=== PATIENT | male | born 1995 | race Caucasian/White ===

== ENCOUNTER 2017-08-03 16:05 | Emergency (ER) | payer OTHER ==
[2017-08-03] MEDS: ONDANSETRON 4MG/2ML VIAL (J2405) IV ×2 (19:30)
[2017-08-03] MEDS: NS 1,000 ML IV ×2 (19:30)
[2017-08-03] MEDS: MORPHINE 4 MG/ML 1ML SYRINGE IV ×2 (19:59)
[2017-08-03 20:05] LABS: BASO % 0.3 % (0.0-1.0); EOS % 0.1 % (0.0-3.0); HEMATOCRIT 44.8 % (42.0-52.0); IMMATURE GRANULOCYTE % 0.3 % (0-0); LYMPH % 17.1 % (24.0-44.0); MEAN CORPUSCULAR HEMOGLOBIN 30.5 pg (27.0-33.0); MEAN CORPUSCULAR HGB CONC 35.7 g/dl (32.0-36.5); MEAN CORPUSCULAR VOLUME 85.3 fl (80.0-96.0); MONO # 0.6 10^3/uL (0.0-0.8); MONO % 5.3 % (0.0-5.0); NEUTROPHILS # 8.8 10^3/uL (1.8-7.7); NEUTROPHILS % 76.9 % (36.0-66.0); PLATELET COUNT, AUTOMATED 323 10^3/uL (150-450); RED BLOOD COUNT 5.25 10^6/uL (4.30-6.10); RED CELL DISTRIBUTION WIDTH 11.4 % (11.5-14.5); WHITE BLOOD COUNT 11.5 10^3/uL (4.0-10.0)
[2017-08-03 20:10] LABS: KETONE, URINE AUTO RFX 1+ mg/dL (NEGATIVE); LEUKOCYTE ESTERASE UR AUTO RFX NEGATIVE (NEGATIVE); NITRITE, URINE AUTO RFX NEGATIVE (NEGATIVE); RBC, URINE AUTO RFX 1 /HPF (0-3); SPECIFIC GRAVITY UR AUTO RFX 1.013 (1.002-1.035); SQUAM EPITHELIAL CELL UR AURFX 0 /HPF (0-6); WBC, URINE AUTO RFX 3 /HPF (0-3)
[2017-08-03] MEDS ORDERED: ISOVUE-370 76% 100ML VIAL (Q9967) As Ordered ×2 (20:18)
[2017-08-03 20:19] LABS: ALBUMIN 4.9 GM/DL (3.2-5.2); ALBUMIN/GLOBULIN RATIO 1.48 (1.00-1.93); ALKALINE PHOSPHATASE 82 U/L (45-117); ALT/SGPT 21 U/L (12-78); ANION GAP 6 MEQ/L (8-16); AST/SGOT 10 U/L (7-37); BILIRUBIN,DIRECT 0.1 MG/DL (0.0-0.2); BILIRUBIN,TOTAL 0.4 MG/DL (0.2-1.0); BLOOD UREA NITROGEN 16 MG/DL (7-18); CALCIUM LEVEL 9.2 MG/DL (8.5-10.1); CARBON DIOXIDE LEVEL 27 MEQ/L (21-32); CHLORIDE LEVEL 106 MEQ/L (98-107); CREATININE FOR GFR 1.12 MG/DL (0.70-1.30); GLOMERULAR FILTRATION RATE > 60.0 (>60); GLUCOSE, FASTING 95 MG/DL (70-105); LIPASE 77 U/L (73-393); POTASSIUM SERUM 3.8 MEQ/L (3.5-5.1); SODIUM LEVEL 139 MEQ/L (136-145); TOTAL PROTEIN 8.2 GM/DL (6.4-8.2)
[2017-08-03] MEDS: METOCLOPRAMIDE INJ 10MG/2ML VIAL (J2765) IV ×2 (21:45)
== END 2017-08-03 22:37 | disposition home or self-care (01) ==
LOC: M ED 16:05
DX: A08.4 Viral intestinal infection, unspecified (principal); J45.909 Unspecified asthma, uncomplicated; F33.9 Major depressive disorder, recurrent, unspecified; Z79.899 Other long term (current) drug therapy; Z82.49 Family history of ischemic heart disease and other diseases of the circulatory system; Z83.79 Family history of other diseases of the digestive system; Z98.890 Other specified postprocedural states
CPT/HCPCS: J2405

== ENCOUNTER 2018-08-11 09:18 | Inpatient (IN) | payer OTHER ==
[~2018-08-11] VITALS: Ht 180.3 cm; Wt 73.8 kg
[~2018-08-11 09:18] MED LIST: BUPR15TA PO; SING10TA32 PO; TRAZ-160 PO; ZOFR4TAB14 PO
[2018-08-11] MEDS ORDERED: VYVA50CA4 PO (09:54)
[2018-08-11] MEDS ORDERED: TRIL1TAB PO (09:54)
[2018-08-11] MEDS ORDERED: HYDR-3363 PO (09:54)
[2018-08-11] MEDS ORDERED: FLUO40CA PO (09:54)
[2018-08-11] MEDS ORDERED: LITH300C PO (09:54)
[2018-08-11] MEDS ORDERED: MIRT15TA3 PO (09:54)
[2018-08-11 10:58] LABS: HEMATOCRIT 43.5 % (42.0-52.0); HEMOGLOBIN 15.1 g/dl (13.5-17.5); MEAN CORPUSCULAR HEMOGLOBIN 30.6 pg (27.0-33.0); MEAN CORPUSCULAR HGB CONC 34.7 g/dl (32.0-36.5); MEAN CORPUSCULAR VOLUME 88.1 fl (80.0-96.0); PLATELET COUNT, AUTOMATED 275 10^3/uL (150-450); RED BLOOD COUNT 4.94 10^6/uL (4.30-6.10); WHITE BLOOD COUNT 6.1 10^3/uL (4.0-10.0)
[2018-08-11] MEDS ORDERED: CBD OIL PO (11:16)
[2018-08-11] MEDS ORDERED: OXCA300T14 PO (11:16)
[2018-08-11 11:30] LABS: AMPHETAMINES LEVEL URINE POSITIVE (NEGATIVE); BARBITURATES URINE NEGATIVE (NEGATIVE); BENZODIAZEPINES URINE NEGATIVE (NEGATIVE); CANNABINOIDS URINE POSITIVE (NEGATIVE); COCAINE METABOLITE URINE NEGATIVE (NEGATIVE); METHADONE URINE NEGATIVE (NEGATIVE); OPIATES URINE NEGATIVE (NEGATIVE); PHENCYCLIDINE URINE NEGATIVE (NEGATIVE)
[2018-08-11 11:39] LABS: ALBUMIN 4.2 GM/DL (3.2-5.2); ALT/SGPT 17 U/L (12-78); BILIRUBIN,DIRECT 0.1 MG/DL (0.0-0.2); BILIRUBIN,TOTAL 0.5 MG/DL (0.2-1.0); BLOOD UREA NITROGEN 19 MG/DL (7-18); CALCIUM LEVEL 8.8 MG/DL (8.5-10.1); CARBON DIOXIDE LEVEL 25 MEQ/L (21-32); CHLORIDE LEVEL 105 MEQ/L (98-107); CREATININE FOR GFR 1.02 MG/DL (0.70-1.30); ETHYL ALCOHOL (ETHANOL) < 0.003 % (0.000-0.010); GLOMERULAR FILTRATION RATE > 60.0 (>60); GLUCOSE, FASTING 117 MG/DL (70-100); POTASSIUM SERUM 3.9 MEQ/L (3.5-5.1); SALICYLATE LEVEL < 1.7 MG/DL (5.0-30.0); SODIUM LEVEL 138 MEQ/L (136-145); THYROID STIMULATING HORMONE 0.896 uIU/ML (0.358-3.740); TOTAL PROTEIN 7.2 GM/DL (6.4-8.2)
[2018-08-11 11:40] LABS: ACETAMINOPHEN LEVEL < 2.0 UG/ML (10.0-30.0)
[2018-08-11] MEDS ORDERED: MAALOX 30 ML SUSP *UDC PO PRN (12:15)
[2018-08-11] MEDS ORDERED: traZODone 50 MG TAB PO PRN (12:15)
[2018-08-11] MEDS ORDERED: ACETAMINOPHEN TAB 650MG DOSE (2X325MG) PO PRN (12:15)
[2018-08-11] MEDS ORDERED: MOM 30ML SUSPENSION UDC PO PRN (12:15)
[2018-08-11 13:02] VITALS: BP 145/95
--- NOTE | 2018-08-11 15:20 | HPEPDOC ---
[facility] Medical History & Physical Date of Admission Aug 11, 2018 History and Physical PCP: [facility] ATTENDING: Dr. Leeroy Arredondo HPI: 23yoM admitted to [facility] for depressive disorder, being medically examined today. No acute medical complaints today. Pt states he takes Trileptal for mood. Denies any fevers, chills, weakness, fatigue, AGUILERA, CP, SOB, cough, palpitations, abdominal pain, N/V/D or changes in bowel or bladder habits. PMHx: Anxiety depression H/O SI Asthma PSHX: epidural injection x 2 related to back injury SOCHX: Resides in: [facility] Marital Status: single Kids: none Employment: [employer] Tobacco use: denies ETOH: denies Illicit Drugs: marijuana daily IV Drug Use: Denies Tattoos done unprofessionally: Denies FAMHX: Mother: Alive, fibromyalgia/OA Father: Alive,HTN, HLD, depression Siblings: Alive, well Children: none Unexpected deaths due to medical reasons: None. ROS: As noted in HPI, otherwise 11pt ROS of systems reviewed and unremarkable. PE: GEN: 23yoM, appears stated age. Well-nourished, well developed. No acute distress. Alert and oriented x 3. Pleasant, interactive. HEENT: Normocephalic, atraumatic. Pupils are equal, round, and reactive to light. Extraocular movements are intact. No nystagmus appreciated. Sclera are nonicteric. Conjunctiva without injection. Nose midline. Nasal turbinates without bogginess. EACs both patent BL. TMs both visualized and roberto with good cone of light, no bulging or erythema. No facial asymmetry. Moist mucous mem branes. Dentition fair. Pharynx pink and moist. Neck supple, trachea midline. No lymphadenopathy or thyromegaly appreciated. CHEST: Regular rate and rhythm, +S1, +S2 LUNGS: Clear to auscultation bilaterally. No wheezes, rales, or rhonchi. Breathing appears symmetric and easy. Patient is speaking in full sentences. No accessory muscle use. ABD: Round, soft, non-tender, non-distended. +Bowel sounds throughout. No rebound or guarding. No costovertebral angle tenderness. EXT: Pulses 2+ bilaterally dorsalis pedis and radial. No lower extremity edema appreciated. SKIN: [place], dry, warm. Capillary refill <2sec. No rashes. NEURO: Alert and oriented x 3. Cranial nerves III-XII are intact. No focal de ficits appreciated. EKG: pending A&P: 23yoM admitted to [facility] for depressive disorder 1. Psych. Plan per Psychiatry. Obtain baseline EKG to assure the safety of psychiatric medications as they can prolong the QT interval. 2. Asthma. Continue Singulair 10 mg po daily. Albuterol HFA 2 puffs Q4hr as needed. 3. Follow up with PCP on discharge. 4. Substance use. management per psychiatry. Vital Signs Vital Signs Date Time Temp Pulse Resp B/P (MAP) Pulse Ox O2 Delivery O2 Flow Rate FiO2 08/11/18 13:05 97.9 81 18 127/84 (98) 98 Room Air Laboratory Data Labs 24H Laboratory Tests 2 08/11/18 10:08: Nucleated Red Blood Cells % (auto) 0.0, Anion Gap 8, Glomerular Filtration Rate > 60.0, Calcium Level 8.8, Aspartate Amino Transf (AST/SGOT) 14, Alanine Aminotransferase (ALT/SGPT) 17, Alkaline Phosphatase 59, Total Bilirubin 0.5, Direct Bilirubin 0.1, Total Protein 7.2, Albumin 4.2, Albumin/Globulin Ratio 1.40, Thyroid Stimulating Hormone (TSH) 0.896, Salicylates Level < 1.7L, Urine Amphetamines Screen POSITIVEH, Urine Benzodiazepines Screen NEGATIVE, Urine Opiates Screen NEGATIVE, Urine Methadone Screen NEGATIVE, Acetaminophen Level < 2.0L, Urine Barbiturates Screen NEGATIVE, Urine Phencyclidine Screen NEGATIVE, Urine Cocaine Metabolite Screen NEGATIVE, Urine Cannabinoids Screen POSITIVEH, Ethyl Alcohol Level < 0.003 CBC/BMP Laboratory Tests 08/11/18 10:08 Red Blood Count 4.94, Mean Corpuscular Volume 88.1, Mean Corpuscular Hemoglobin 30.6, Mean Corpuscular Hemoglobin Concent 34.7, Red Cell Distribution Width 11.7 Home Medications Scheduled (Vyvanse) 50 Mg Cap, 50 MG PO QAM Cannabidiol (Cbd Oil) Btl, 1 CHEW PO DAILY Fluoxetine Hcl (Fluoxetine HCl) 40 Mg Cap, 40 MG PO DAILY [place] Carbonate ([place] Carbonate) 300 Mg Cap, 300 MG PO QHS Mirtazapine (Mirtazapine) 15 Mg Tab, 15 MG PO QHS Montelukast Sodium (Singulair) 10 Mg Tab, 10 MG PO DAILY Oxcarbazepine (Trileptal) 300 Mg Tab, 300 MG PO QAM Oxcarbazepine (Oxcarbazepine) 300 Mg Tab, 600 MG PO QHS Allergies Coded Allergies: SEASONAL ALLERGIES (Unverified Allergy, Unknown, 08/11/18) Kelley Hall Aug 11, 2018 15:20
[2018-08-11] MEDS ORDERED: ALBUTEROL 90 MCG/ACT 8GM HFA INHALER INH PRN (15:30)
[2018-08-11 18:00] VITALS: BP 136/87
[2018-08-11] MEDS ORDERED: LITHIUM CARBONATE 300 MG CAP PO SCH (21:00)
[2018-08-11] MEDS: MIRTAZAPINE 15 MG TAB PO SCH (21:28)
[2018-08-11] MEDS: OXcarbazepine 300 MG TAB PO SCH (21:28)
[2018-08-12 07:00] VITALS: BP 127/48
[2018-08-12] MEDS: MONTELUKAST 10 MG TAB PO SCH (08:08)
[2018-08-12] MEDS: FLUoxetine 20 MG CAP PO SCH (08:08)
[2018-08-12] MEDS: OXcarbazepine 300 MG TAB PO SCH ×2 (08:09→20:42)
[2018-08-12] MEDS: LITHIUM CARBONATE 150 MG CAP PO SCH ×2 (12:32→20:42)
[2018-08-12 18:14] VITALS: BP 120/70
[2018-08-12] MEDS: MIRTAZAPINE 15 MG TAB PO SCH (20:42)
[2018-08-13 06:10] VITALS: BP 121/57
[2018-08-13] MEDS: FLUoxetine 20 MG CAP PO SCH (08:24)
[2018-08-13] MEDS: LITHIUM CARBONATE 150 MG CAP PO SCH ×2 (08:24→20:34)
[2018-08-13] MEDS: MONTELUKAST 10 MG TAB PO SCH (08:24)
[2018-08-13] MEDS: OXcarbazepine 300 MG TAB PO SCH ×2 (08:25→20:35)
[2018-08-13 18:00] VITALS: BP 135/87
[2018-08-13] MEDS: MIRTAZAPINE 15 MG TAB PO SCH (20:34)
--- NOTE | 2018-08-13 21:22 | MHHPEPDOC ---
General Date Of Admission: Aug 12, 2018 Legal Status: 9.39 Chief Complaint Increasing depression had SI with a plan History of Present Illness HISTORY OF THE PRESENT ILLNESS: Patient is a 23 -year-old , male, who, as per ED report: "Reason for Referral Patient states that his therapist at [facility], Ruchi Suárez, referred him due to SI. Chief Complaint The patient reports that he went to a scheduled therapy appointment & told his therapist that yesterday he was very depressed. While at work he had thoughts of suicide & when he got home he took his mother's Vicodin & some alcohol upstairs with the intention of overdosing. He decided not to do it because he new he would be seeing his therapist today. He reports that his depression has been increasing since the fall, with loss of interests, apathy, anxiety, poor appetite. He is currently on Remeron, Vyvanse, Prozac, Trileptal, & [place] but feels that the meds and therapy are not enough. He thinks that he needs long-term tx." Psychiatric Review of Systems Depression (2 or more weeks): depressed mood, anhedonia, insomnia/hypersomnia (Since he started taking Mirtazapine, about 1.5 month ago, he is not having insomnia), feelings of excess/guilt, feelings of worthlesness (hopelessness and helplessness too. He had them until Wednesday but not now.), difficulty concentrating (He takes Vyvance for it, because he has trouble concentrating.), appetite changes (ithas been up and own for the last 6 months and that's why I've been takin Remeron"), psychomotor changes (psychomotor retardation, it's not physical, it's mental.), suicidal thoughts (Not right now) Psychosis: denies PTSD: denies Anxiety: situational anxiety, panic attacks (on and off. He thinks it happens because he had just got out of the hospital, he got nervous about being around a lot of people) Anxiety/ 6 months or more of: restlessness, keyed up, difficulty concentrating, muscle tension, sleep disturbance Past Psychiatric History Previous Psychiatric Diagnosis: Depression. Previous Psychiatric Admissions: Yes, in [facility] Suicide Attempts: Attempted for the first time this past Wednesday (08-10-18) Psychiatric Follow-up: Dr. Suárez and Dr. Martinez. She went the last time to Dr. Suárez . Psychiatric medications: [place], he was started on 300 and then it was lowered to 150 because he was developing tremors. He takes Vyvanse, Remeron, Prozac, Trileptal Past Medical History Medical Problems Takes Syngulair, Symbicort, CBD gummies Head Injury: Yes (he had a concussion in college, he was on crutches, he slid off.. He went through a CT scan and it was normal. After the concusion, he had constant headaches.) Seizures: No Hospitalizations: Yes (On [facility] for suicidal ideation) Surgeries: No Family Medical/Psychiatric HX Medical Problems Hypertension Psychiatric Disorders: Yes (Depression on both sides of the family. ) Addiction: Yes Suicide Attemps/Completions: No (No one kniows if his counsin's overdose was accidental or intentional) Addiction History alcohol (It was occasional, when he was in college. He doesn't do it because of the medications he takes), other (Marihuana, once in awhile, because he uses as a crutch when he feels very depressed and it calms him down. It numbs his feelings. Dr. Suárez has suggested him going to a dual diagnosis program) Social History Childhood: Good, he had a good childhood. His parents were together, good to him. He has one brother with whom he gets along. Abuse/Trauma: He was good in school and he thinks that's why he was bullied in Middle School. Current Living Situation: Lives with his parents. Education: College Education. Political Sciences and History Employment: Works at [employer] Social Support: His family Legal: He denies Marital: Single, no children Mental Status Examination General Appearance: well groomed, appears stated age, hospital scubs/clothing Build: average Demeanor: very figety Eye Contact: average Activity: anxious Behavior: cooperative Speech: clear, rapid, pressured, spontaneous Mood: anxious, hypomanic Affect: full, appropriate, congruent, anxious Thought Process: logical/linear Thought Content (Delusions): none reported Thought Content (Other): none reported Thought Content (Aggressive): none reported Perception (Hallucinations): none reported Perception (Other): none reported Cognition (Impairment of): attention/concentration Cognition(Intelligence Est.): average Insight: fair Judgment: Fair Diagnoses 1. Major depressive disorder, recurrent, severe Assessment Patient has a long-standing history of depression, he has a family history of depression. He is being treated by Dr. Suárez, his therapist and Dr. Martinez his psychiatrist. He is a productive and very smart young man who recognizes the symptoms of depression and who acknowledges that he has been depressed for a long period of time. He thinks and Dr. Suárez his therapist think that he would benefit from a dual diagnosis program since he smokes marijuana to numb the feelings of depression. Initial Treatment Plan 1. Patient was admitted on a [9.39] status. 2. Complete history was obtained. 3. With patients permission, family will be contacted and database will be expanded. 4. Patients medication regimen will be reviewed and changed accordingly. 5. Patient will be provided with protected environment. 6. Patient will be treated with individual, group, and milieu therapies. 7. Patient will receive supportive psych-education. 8. Discharge planning will commence immediately. 9. Outpatient follow-up treatment will be strongly recommended. 10. The initial treatment plan will focus initially on: * Depression. * Anxiety * Risk for suicide. * Substance abuse. ESTIMATED LENGTH OF STAY: 5-7 DAYS. TIME SPENT COUNSELING AND COORDINATING INITIAL CARE: 60 minutes. Vital Signs Vital Signs Date Time Temp Pulse Resp B/P (MAP) Pulse Ox O2 Delivery O2 Flow Rate FiO2 08/12/18 07:00 98.7 86 16 127/48 (74) 08/11/18 13:05 98 Room Air Medications Scheduled (Vyvanse) 50 Mg Cap, 50 MG PO QAM, (Reported) Cannabidiol (Cbd Oil) Btl, 1 CHEW PO DAILY, (Reported) Fluoxetine Hcl (Fluoxetine HCl) 40 Mg Cap, 40 MG PO DAILY, (Reported) [place] Carbonate ([place] Carbonate) 300 Mg Cap, 300 MG PO QHS, (Reported) Mirtazapine (Mirtazapine) 15 Mg Tab, 15 MG PO QHS, (Reported) Montelukast Sodium (Singulair) 10 Mg Tab, 10 MG PO DAILY, (Reported) Oxcarbazepine (Trileptal) 300 Mg Tab, 300 MG PO QAM, (Reported) Oxcarbazepine (Oxcarbazepine) 300 Mg Tab, 600 MG PO QHS, (Reported) Allergies Coded Allergies: SEASONAL ALLERGIES (Unverified Allergy, Unknown, 08/11/18) ERIC HOWARD MD Aug 12, 2018 12:16
--- NOTE | 2018-08-13 21:30 | MHIPNPDOC ---
[facility] Progress Note Progress Note DATE OF SERVICE: 08/13/18 HISTORY: "Reason for Referral Patient states that his therapist at [facility], Ruchi Suárez, referred him due to SI. Chief Complaint The patient reports that he went to a scheduled therapy appointment & told his therapist that yesterday he was very depressed. While at work he had thoughts of suicide & when he got home he took his mother's Vicodin & some alcohol upstairs with the intention of overdosing. He decided not to do it because he new he would be seeing his therapist today. He reports that his depression has been increasing since the fall, with loss of interests, apathy, anxiety, poor appetite. He is currently on Remeron, Vyvanse, Prozac, Trileptal, & [place] but feels that the meds and therapy are not enough. He thinks that he needs long-term tx." VITAL SIGNS: See below. NEW TEST RESULTS: See below. CURRENT MEDICATIONS: See below. MENTAL STATUS EXAMINATION: Patient is a 23-year old male, who is alert, cooperative, laying in bed, reading, wearing hospital clothes. Speech: Is spontaneous and fluent, normal in rhythm, rate, tone and volume. Language skills are good. Thought processes including: Linear, coherent. Thought content: Goal directed, enthusiastic about going for long-term treatment. Abstract reasoning, and computation: Good. Description of associations: Intact Description of abnormal or psychotic thoughts: Denies auditory and visual hallucinations and denies thought delusions. Has passive and fleeting suicidal thoughts, with no plan. Can contract for safety. Denies homicidal ideation Judgment: Fair. Insight: Fair. Orientation: 3. Recent and remote memory: Intact. Attention span and concentration: Good. Language: Well structured, good vocabulary. Fund of knowledge: Average. Mood: Anxious/depressed. Affect: Congruent with mood. DIAGNOSES: 1. Major depressive disorder, recurrent, severe.. ASSESSMENT: Patient is very cooperative, interested in his treatment, he says he spoke with his father today and his father has communicated with his psychiatrist and his therapist and they found information about [facility] and a long-term hospitalization treatment program that would suit his needs. Patient reports that he will like to go there if we could refer him but he also manifests worries about his dog being put to sleep and him wanting to be there with his dog. He tells me that he had told his parents that His Dog Could Be Put to Sleep on Wednesday night but I tell him that that the referral will take some time, probably he won't be discharged on Wednesday MANAGEMENT PLAN: We'll continue with the same treatment plan. [place] levels Wednesday morning TIME SPENT: 20 minutes. Vital Signs Vital Signs Date Time Temp Pulse Resp B/P (MAP) Pulse Ox O2 Delivery O2 Flow Rate FiO2 08/13/18 18:00 98.6 80 16 135/87 (103) 08/11/18 13:05 98 Room Air Current Medications Current Medications Acetaminophen (Tylenol Tab) 650 mg Q6HP PRN PO HEADACHE or DISCOMFORT; Start 08/11/18 at 12:15 Al Hydrox/Mg Hydrox/Simethicone (Mylanta) 30 ml Q4HP PRN PO HEARTBURN/INDIGESTION; Start 08/11/18 at 12:15 Albuterol Sulfate (Proventil, Ventolin Hfa) 2 puff Q4HP PRN INH SHORTNESS OF BREATH; Start 08/11/18 at 15:30 Fluoxetine HCl (PROzac) 40 mg DAILY PO Last administered on 08/13/18at 08:24; Start 08/12/18 at 09:00 Home Med (Med Rec Complete!) ASDIRECTED XX ; Start 08/11/18 at 11:30; Stop 08/11/18 at 11:30; Status DC [place] Carbonate ([place] Carbonate) 150 mg BID PO Last administered on 08/13/18at 20:34; Start 08/12/18 at 12:30 [place] Carbonate ([place] Carbonate) 300 mg QHS PO Last administered on 08/11/18at 21:28; Start 08/11/18 at 21:00; Stop 08/12/18 at 12:17; Status DC Magnesium Hydroxide (Milk Of Magnesia) 30 ml DAILYPRN PRN PO CONSTIPATION; Start 08/11/18 at 12:15 Mirtazapine (Remeron) 15 mg QHS PO Last administered on 08/13/18at 20:34; Start 08/11/18 at 21:00 Montelukast Sodium (Singulair) 10 mg DAILY PO Last administered on 08/13/18at 08:24; Start 08/12/18 at 09:00 Oxcarbazepine (Trileptal) 300 mg QAM PO Last administered on 08/13/18at 08:25; Start 08/12/18 at 09:00 Oxcarbazepine (Trileptal) 600 mg QHS PO Last administered on 08/13/18at 20:35; Start 08/11/18 at 21:00 Trazodone HCl (Desyrel) 50 mg QHSP PRN PO INSOMNIA; Start 08/11/18 at 12:15; Status Cancel Allergies Coded Allergies: SEASONAL ALLERGIES (Unverified Allergy, Unknown, 08/11/18) ERIC HOWARD MD Aug 13, 2018 21:30
[2018-08-14 06:28] VITALS: BP 134/74
[2018-08-14] MEDS: LITHIUM CARBONATE 150 MG CAP PO SCH ×2 (08:02→20:35)
[2018-08-14] MEDS: FLUoxetine 20 MG CAP PO SCH (08:03)
[2018-08-14] MEDS: OXcarbazepine 300 MG TAB PO SCH ×2 (08:03→20:35)
[2018-08-14] MEDS: MONTELUKAST 10 MG TAB PO SCH (08:03)
--- NOTE | 2018-08-14 16:24 | MHIPNPDOC ---
[facility] Progress Note Progress Note DATE OF SERVICE: 08/14/18 HISTORY: "Reason for Referral Patient states that his therapist at [facility], Ruchi Suárez, referred him due to SI. Chief Complaint The patient reports that he went to a scheduled therapy appointment & told his therapist that yesterday he was very depressed. While at work he had thoughts of suicide & when he got home he took his mother's Vicodin & some alcohol upstairs with the intention of overdosing. He decided not to do it because he new he would be seeing his therapist today. He reports that his depression has been increasing since the fall, with loss of interests, apathy, anxiety, poor appetite. He is currently on Remeron, Vyvanse, Prozac, Trileptal, & [place] but feels that the meds and therapy are not enough. He thinks that he needs long-term tx." VITAL SIGNS: See below. NEW TEST RESULTS: See below. CURRENT MEDICATIONS: See below. MENTAL STATUS EXAMINATION: Patient is a 23-year old male, who is alert, cooperative, wearing hospital clothes. Speech: Is spontaneous and fluent, normal in rhythm, rate, tone and volume. Language skills are good. Thought processes including: Linear, coherent. Thought content: Goal directed, enthusiastic about going for long-term treatment. Abstract reasoning, and computation: Good. Description of associations: Intact Description of abnormal or psychotic thoughts: Denies auditory and visual hallucinations and denies thought delusions. Has passive and fleeting suicidal thoughts, with no plan. Can contract for safety. Denies homicidal ideation Judgment: Fair. Insight: Fair. Orientation: 3. Recent and remote memory: Intact. Attention span and concentration: Good. Language: Well structured, good vocabulary. Fund of knowledge: Average. Mood: Anxious/depressed. Affect: Congruent with mood. DIAGNOSES: 1. Major depressive disorder, recurrent, severe.. ASSESSMENT: Pleasant and cooperative, received his mother visit, was seen laying in bed, reading. Later on, he came to the office and told me what his family, Dr. Martinez and Dr. Suárez have in mind for him. apparently they are planning on him going to [facility] for about 8-10 days and then, seeing Dr. Suárez and Dr. Martinez more frequently. MANAGEMENT PLAN: We'll continue with the same treatment plan. TIME SPENT: 20 minutes. Vital Signs Vital Signs Date Time Temp Pulse Resp B/P (MAP) Pulse Ox O2 Delivery O2 Flow Rate FiO2 08/14/18 06:28 98.7 53 14 134/74 (94) Room Air 08/11/18 13:05 98 Current Medications Current Medications Acetaminophen (Tylenol Tab) 650 mg Q6HP PRN PO HEADACHE or DISCOMFORT; Start 08/11/18 at 12:15 Al Hydrox/Mg Hydrox/Simethicone (Mylanta) 30 ml Q4HP PRN PO HEARTBURN/INDIGESTION; Start 08/11/18 at 12:15 Albuterol Sulfate (Proventil, Ventolin Hfa) 2 puff Q4HP PRN INH SHORTNESS OF BREATH; Start 08/11/18 at 15:30 Fluoxetine HCl (PROzac) 40 mg DAILY PO Last administered on 08/14/18at 08:03; Start 08/12/18 at 09:00 Home Med (Med Rec Complete!) ASDIRECTED XX ; Start 08/11/18 at 11:30; Stop at 11:30; Status DC [place] Carbonate ([place] Carbonate) 150 mg BID PO Last administered on 08/14/18at 08:02; Start 08/12/18 at 12:30 [place] Carbonate ([place] Carbonate) 300 mg QHS PO Last administered on 08/11/18at 21:28; Start 08/11/18 at 21:00; Stop 08/12/18 at 12:17; Status DC Magnesium Hydroxide (Milk Of Magnesia) 30 ml DAILYPRN PRN PO CONSTIPATION; Start 08/11/18 at 12:15 Mirtazapine (Remeron) 15 mg QHS PO Last administered on 08/13/18at 20:34; Start 08/11/18 at 21:00 Montelukast Sodium (Singulair) 10 mg DAILY PO Last administered on 08/14/18at 08:03; Start 08/12/18 at 09:00 Oxcarbazepine (Trileptal) 300 mg QAM PO Last administered on 08/14/18at 08:03; Start 08/12/18 at 09:00 Oxcarbazepine (Trileptal) 600 mg QHS PO Last administered on 08/13/18at 20:35; Start 08/11/18 at 21:00 Trazodone HCl (Desyrel) 50 mg QHSP PRN PO INSOMNIA; Start 08/11/18 at 12:15; Status Cancel Allergies Coded Allergies: SEASONAL ALLERGIES (Unverified Allergy, Unknown, 08/11/18) ERIC HOWARD MD Aug 14, 2018 14:41
[2018-08-14 18:00] VITALS: BP 116/62
[2018-08-14] MEDS: MIRTAZAPINE 15 MG TAB PO SCH (20:35)
[2018-08-15 06:38] VITALS: BP 137/93
[2018-08-15] MEDS: OXcarbazepine 300 MG TAB PO SCH (08:28)
[2018-08-15] MEDS: LITHIUM CARBONATE 150 MG CAP PO SCH (08:28)
[2018-08-15] MEDS: MONTELUKAST 10 MG TAB PO SCH (08:28)
[2018-08-15] MEDS: FLUoxetine 20 MG CAP PO SCH (08:28)
[2018-08-15] MEDS ORDERED: MIRT15TA3 PO (11:10)
--- NOTE | 2018-08-15 17:17 | MHDSPDOC ---
[facility] Discharge Summary Discharge Summary DATE OF ADMISSION: Aug 11, 2018 at 12:07 DATE OF DISCHARGE: Aug 15, 2018 at 13:30 DISCHARGE DIAGNOSES: 1. Major depressive disorder, recurrent, severe.. REASON FOR ADMISSION: Chief Complaint Increasing depression had SI with a plan History of Present Illness HISTORY OF THE PRESENT ILLNESS: Patient is a 23 -year-old , male, who, as per ED report: "Reason for Referral Patient states that his therapist at [facility], Ruchi Suárez, referred him due to SI. Chief Complaint The patient reports that he went to a scheduled therapy appointment & told his therapist that yesterday he was very depressed. While at work he had thoughts of suicide & when he got home he took his mother's Vicodin & some alcohol upstairs with the intention of overdosing. He decided not to do it because he new he would be seeing his therapist today. He reports that his depression has been increasing since the fall, with loss of interests, apathy, anxiety, poor appetite. He is currently on Remeron, Vyvanse, Prozac, Trileptal, & Institute but feels that the meds and therapy are not enough. He thinks that he needs long-term tx." CONSULTANTS INVOLVED: None TREATMENT AND PROGRESS ON THE UNIT : Patient was pleasant and cooperative, he w as very insightful, accepted his illness, was compliant with medication. Says he knows depression runs in his family and he feels extremely supported by all his family but his father is very empathetic because he has suffered depression himself for years. The patient, his parents, Kamini Green, his therapist and Dr. Martinez had a plan in mind of going for 8-10 days to [facility] for intensive treatment, come back home, increase the visits with his therapist, Dr. Suárez, quit his job and go back to school. The patient will have his dog to be put down to sleep and I questioned him if he was going to be able to deal with this and he said he would because his dog has been ill for a long period of time and he has been preparing for this moment. Patient continued taking the medications that Dr. Martinez had indicated. Nothing was changed. HOSPITAL COURSE: As above DISCHARGE ASSESSMENT: Patient had fleeting suicidal thoughts, passive with no plan as he has had for years. He said he would not act on them, his father requested a week leave to be able to be with the patient and that will reduce his risks. He contracts for safety. He will go to his therapist and psychiatrist while waiting to go to [facility]. He was not homicidal and was not psychotic. MENTAL STATUS EXAMINATION ON DISCHARGE: Patient is a 23-year old male, who is alert, cooperative, wearing hospital clothes. Speech: Is spontaneous and fluent, normal in rhythm, rate, tone and volume. Language skills are good. Thought processes including: Linear, coherent. Thought content: Goal directed, enthusiastic about going for long-term treatment. Abstract reasoning, and computation: Good. Description of associations: Intact Description of abnormal or psychotic thoughts: Denies auditory and visual hallucinations and denies thought delusions. Has passive and fleeting suicidal thoughts, with no plan. Can contract for safety. Denies homicidal ideation Judgment: Fair. Insight: Fair. Orientation: 3. Recent and remote memory: Intact. Attention span and concentration: Good. Language: Well structured, good vocabulary. Fund of knowledge: Average. Mood: Anxious/depressed. Affect: Congruent with mood. DIAGNOSES: 1. Major depressive disorder, recurrent, severe.. MEDICATIONS ON DISCHARGE: Scheduled (Vyvanse) 50 Mg Cap, 50 MG PO QAM, (Reported) Cannabidiol (Cbd Oil) Btl, 1 CHEW PO DAILY, (Reported) Fluoxetine Hcl (Fluoxetine HCl) 40 Mg Cap, 40 MG PO DAILY, (Reported) Institute Carbonate (Institute Carbonate) 300 Mg Cap, 300 MG PO QHS, (Reported) Mirtazapine (Mirtazapine) 15 Mg Tab, 15 MG PO QHS for insomnia, #7 Montelukast Sodium (Singulair) 10 Mg Tab, 10 MG PO DAILY, (Reported) Oxcarbazepine (Trileptal) 300 Mg Tab, 300 MG PO QAM, (Reported) Oxcarbazepine (Oxcarbazepine) 300 Mg Tab, 600 MG PO QHS, (Reported) PLAN/FOLLOWUP ARRANGEMENTS: Follow Up Care Education Label * Mental Health Appt 1 * Mental Health [facility] * Established With This Provider Yes * Therapist Dr. Ruchi Suárez * Date Aug 18, 2018 * Time 09:00 * Address of Clinic or Practice [address] [place] [address], [place] [address] * Follow Up Care Education Label * Medical * Medical Follow Up [facility] * Therapist RUCHI BARRIGA * Date Aug 24, 2018 * Time 16:30 * Address of Clinic or Practice [address] [place] [address] * The amount of time spent in the coordination of care for this patient was approximately 30 minutes. Vital Signs/I&Os Vital Signs Date Time Temp Pulse Resp B/P (MAP) Pulse Ox O2 Delivery O2 Flow Rate FiO2 08/15/18 06:38 97.7 64 18 137/93 (108) 08/14/18 18:00 Room Air 08/11/18 13:05 98 Medications Scheduled (Vyvanse) 50 Mg Cap, 50 MG PO QAM, (Reported) Cannabidiol (Cbd Oil) Btl, 1 CHEW PO DAILY, (Reported) Fluoxetine Hcl (Fluoxetine HCl) 40 Mg Cap, 40 MG PO DAILY, (Reported) Institute Carbonate (Institute Carbonate) 300 Mg Cap, 300 MG PO QHS, (Reported) Mirtazapine (Mirtazapine) 15 Mg Tab, 15 MG PO QHS for insomnia, #7 Montelukast Sodium (Singulair) 10 Mg Tab, 10 MG PO DAILY, (Reported) Oxcarbazepine (Trileptal) 300 Mg Tab, 300 MG PO QAM, (Reported) Oxcarbazepine (Oxcarbazepine) 300 Mg Tab, 600 MG PO QHS, (Reported) Allergies Coded Allergies: SEASONAL ALLERGIES (Unverified Allergy, Unknown, 08/11/18) ERIC HOWARD MD Aug 15, 2018 17:15
== END 2018-08-15 13:30 | disposition home or self-care (01) | DRG 885 ==
LOC: M ED 09:18 → M ED INP 12:07 → M PSY 12:57
PROVIDERS: ADMIT Psychiatry & Neurology Psychiatry; ATTEND Psychiatry & Neurology Psychiatry
DX: F33.2 Major depressive disorder, recurrent severe without psychotic features (principal); J45.909 Unspecified asthma, uncomplicated; Z81.8 Family history of other mental and behavioral disorders; Z79.899 Other long term (current) drug therapy

== ENCOUNTER → 2019-03-29 | Outpatient (REF) | payer OTHER ==
[~2019-03-29] MED LIST changes: +CBD OIL PO; +FLUO40CA PO; +HYDR-3363 PO; +LITH300C PO; +MIRT15TA3 PO; +OXCA300T14 PO; -TRAZ-160 PO; +TRAZ-252 PO; +TRIL1TAB PO; +VYVA50CA4 PO
== END ==
LOC: M LAB REF 09:43
PROVIDERS: ATTEND Otolaryngology
DX: K09.8 Other cysts of oral region, not elsewhere classified (principal)